=== PATIENT | female | born 1995 | race Caucasian/White ===

== ENCOUNTER 2017-06-14 19:06 | Emergency (ER) | payer OTHER ==
[2017-06-14 20:40] LABS: URINE BLOOD (Dip) POC Trace-lysed (NEGATIVE); URINE GLUCOSE (Dip) POC Negative (NEGATIVE); URINE KETONES (Dip) POC 3+ (NEGATIVE); URINE LEUKOCYTE EST (Dip) POC Negative (NEGATIVE); URINE NITRITE (Dip) POC Negative (NEGATIVE); URINE TOTAL PROTEIN POC Negative (NEGATIVE)
[2017-06-14] MEDS: ACETAMINOPHEN 500 MG TAB PO (20:45)
[2017-06-14] MEDS: IBUPROFEN 600 MG TAB PO (20:46)
== END 2017-06-14 23:06 | disposition home or self-care (01) ==
LOC: FTE 19:06
DX: N30.01 Acute cystitis with hematuria (principal)
CPT/HCPCS: 81003; 87400; 99283

== ENCOUNTER 2018-04-18 15:11 | Emergency (ER) | payer OTHER ==
[2018-04-18] MEDS: SOD CHLORIDE 0.9% 1,000 ML IV (15:56)
[2018-04-18] MEDS: DIPHENHYDRAMINE 50 MG INJ IV (15:56)
[2018-04-18] MEDS: PROCHLORPERAZINE 10 MG INJ IV (16:03)
[2018-04-18] MEDS: KETOROLAC 30 MG INJ IV (16:04)
== END 2018-04-18 17:09 | disposition home or self-care (01) ==
LOC: FTE 15:11
DX: R51 Headache (principal)
CPT/HCPCS: 70450; 81025; 96361; 96374; 96375; 99285-25